=== PATIENT | female | born 1940 | race Caucasian/White ===

== ENCOUNTER → 2024-01-12 09:16 | Outpatient (REF) | payer MEDICARE, BC, SELFPAY | LOC: HWRCS 09:16 | PROVIDERS: ATTENDING PHYSICIAN Physician Assistant Medical; FAMILY PHYSICIAN Family Medicine | DX: I10 Essential (primary) hypertension (principal); I35.1 Nonrheumatic aortic (valve) insufficiency | CPT/HCPCS: 93306 ==